=== PATIENT | female | born 1970 | race Caucasian/White ===

== ENCOUNTER 2021-03-26 17:41 | Emergency (ER) | payer SELFPAY ==
[~2021-03-26] VITALS: Ht 154.9 cm; Wt 109.1 kg
[~2021-03-26 17:41] MED LIST: DIAZ-351 PO; IBUP-1986 PO; LISI20TA28 PO
[2021-03-26 19:27] VITALS: BP 182/119
[2021-03-26] MEDS ORDERED: ketorolac trometh. 30mg/ml inj. IM ONE (19:45)
[2021-03-26] MEDS ORDERED: ondansetron 4mg rapidly disintigrating tab PO ONE (19:45)
[2021-03-26] MEDS ORDERED: morphine 4 MG/ML inj SYRINge IM ONE (19:45)
[2021-03-26] MEDS ORDERED: gabapentin 100mg capsule PO ONE (19:45)
[2021-03-26] MEDS ORDERED: acetaminophen 325mg tablet PO ONE (19:45)
[2021-03-26] MEDS ORDERED: CARB1TAB34 PO (19:50)
[2021-03-26] MEDS ORDERED: HYDR-3965 PO (19:50)
[2021-03-26] MEDS ORDERED: carbidoba-levodopa 25-100mg tablet PO ONE (19:50)
[2021-03-26] MEDS ORDERED: KETO10TA2 PO (20:43)
[2021-03-26] MEDS ORDERED: TRAM50TA2 PO (20:43)
[2021-03-26] MEDS ORDERED: PRAM0.5T12 PO (20:43)
[2021-03-26] MEDS ORDERED: CARB1TAB23 PO (20:43)
[2021-03-26] MEDS ORDERED: GABA300C PO (20:43)
[2021-03-26] MEDS ORDERED: TRIH2TAB3 PO (20:43)
[2021-03-26] MEDS ORDERED: LISI20TA28 PO (20:43)
== END 2021-03-26 20:35 | disposition home or self-care (01) ==
LOC: ER 17:42
DX: M79.604 Pain in right leg (principal); M79.605 Pain in left leg; I10 Essential (primary) hypertension
CPT/HCPCS: 96372; 99284; J1885; J2270; 96375; 96376

== ENCOUNTER 2021-08-01 16:11 | Emergency (ER) | payer OTHER ==
[~2021-08-01] VITALS: Ht 154.9 cm; Wt 108.6 kg
[~2021-08-01 16:11] MED LIST changes: +CARB1TAB23 PO; +CARB1TAB34 PO; +GABA300C PO; +KETO10TA2 PO; +PRAM0.5T12 PO
[2021-08-01] MEDS: morphine 4 MG/ML inj SYRINge IM ONE (18:45)
[2021-08-01] MEDS: ketorolac tromethamine 15mg/ml inj. IM ONE (18:45)
[2021-08-01] MEDS: acetaminophen 325mg tablet PO ONE (18:45)
[2021-08-01] MEDS: ondansetron 4mg rapidly disintigrating tab PO ONE (18:45)
[2021-08-01] MEDS ORDERED: HYDR-3965 PO (19:22)
[2021-08-01] MEDS ORDERED: LIDO700A32 TOP (19:23)
== END 2021-08-01 19:45 | disposition home or self-care (01) ==
LOC: ER 16:12
DX: M54.50 Low back pain, unspecified (principal); I10 Essential (primary) hypertension; Z79.899 Other long term (current) drug therapy
CPT/HCPCS: 96372; 99284; J1885; J2270